=== PATIENT | male | born 1970 | race Caucasian/White ===

== ENCOUNTER 2016-09-18 10:32 | Outpatient (CLI) | payer OTHER ==
[~2016-09-18 10:32] MED LIST: BEN50 PO; BENZ1TAB24 PO; CIPR500T4 PO; CLON0.1T79 PO; DEPER500 PO; HAL5 PO; IND20 PO; ISON100T8 PO; LEVO0.155 PO; LISI-420 PO; ORE25 PO; PIOG15TA2 PO; QUET400T PO
== END 2016-09-18 20:15 | disposition home or self-care (01) ==
LOC: MRD 10:32
DX: M25.551 Pain in right hip (principal); R10.9 Unspecified abdominal pain
CPT/HCPCS: 73502; 74000

== ENCOUNTER 2017-01-26 09:35 | Emergency (ER) | payer OTHER ==
[~2017-01-26] VITALS: Ht 167.6 cm; Wt 130.2 kg
[2017-01-26 09:39] VITALS: BP 144/84
--- NOTE | 2017-01-26 09:53 | NUR ---
Patient ambulated to bed 05.
--- NOTE | 2017-01-26 10:00 | NUR ---
PATIENT PRESENTS TO ED WITH INTERMITTENT FLANK PAIN 5/10 BUT DENIES PAIN AT THIS TIME. DENIES N/V, DENIES DYSURIA . PT STATES . DENIES N/V/D; SKIN IS PINK/WARM/DRY; AAOX4 WITH EVEN AND STEADY GAIT; LUNGS CLEAR BL; HR EVEN AND REGULAR; PT DENIES ANY FEVER, CP, SOB, OR COUGH AT THIS TIME; PATIENT STATES PAIN OF 0/10 AT THIS TIME; VSS; PATIENT POSITIONED FOR COMFORT; HOB ELEVATED; BEDRAILS UP X2; BED DOWN. ER MD MADE AWARE OF PT STATUS.
--- NOTE | 2017-01-26 10:08 | NUR ---
Dr. Yan evaluating patient at bedside.
[2017-01-26 10:34] VITALS: BP 144/84
== END 2017-01-26 10:34 | disposition home or self-care (01) ==
LOC: MED 09:35
DX: R10.9 Unspecified abdominal pain (principal); G25.9 Extrapyramidal and movement disorder, unspecified; E11.9 Type 2 diabetes mellitus without complications; I10 Essential (primary) hypertension; Z87.891 Personal history of nicotine dependence
CPT/HCPCS: 81002; 82948; 99282; 99283

== ENCOUNTER 2017-02-09 10:54 | Emergency (ER) | payer OTHER ==
[~2017-02-09] VITALS: Ht 167.6 cm; Wt 129.3 kg
[2017-02-09 10:58] VITALS: BP 150/93
[2017-02-09] MEDS ORDERED: KETOROLAC 60 MG/2 ML VIAL IM ONE (12:20)
--- NOTE | 2017-02-09 12:27 | NUR ---
PATIENT PRESENTS TO ED WITH RIGHT HIP PAIN X 5 DAYS. PT STATED HE TOOK IBUPROFEN. DENIES N/V/D; SKIN IS PINK/WARM/DRY; AAOX4 WITH EVEN AND STEADY GAIT; LUNGS CLEAR BL; HR EVEN AND REGULAR; PT DENIES ANY FEVER, CP, SOB, OR COUGH AT THIS TIME; PATIENT STATES PAIN OF 0/10 AT THIS TIME; VSS; PATIENT POSITIONED FOR COMFORT; HOB ELEVATED; BEDRAILS UP X2; BED DOWN. ER MD MADE AWARE OF PT STATUS.
--- NOTE | 2017-02-09 12:29 | NUR ---
DR. HERNANDEZ PRESENT AT BEDSIDE.
[2017-02-09 12:45] LABS: BASOPHILS # (AUTO) 0.4 K/uL (0.00-0.22); BASOPHILS % (AUTO) 3.3 % (0.0-2.0); EOSINOPHILS # (AUTO) 0.1 K/uL (0-0.4); EOSINOPHILS % (AUTO) 0.9 % (0.0-4.0); HEMATOCRIT 46.4 % (36-52); LYMPHOCYTES # (AUTO) 1.8 K/uL (2.0-11.5); LYMPHOCYTES % (AUTO) 16.8 % (20.5-51.1); MEAN CORPUSCULAR HEMOGLOBIN 29 pg (27-31); MEAN CORPUSCULAR HGB CONC 32 g/dL (33-37); MEAN CORPUSCULAR VOLUME 90 fL (80-94); MONOCYTES # (AUTO) 0.5 K/uL (0.8-1.0); MONOCYTES % (AUTO) 4.5 % (1.7-9.3); NEUTROPHILS # (AUTO) 7.9 K/uL (1.8-7.7); NEUTROPHILS % (AUTO) 74.5 % (42.2-75.2); PLATELET COUNT (AUTO) 127 K/uL (140-450); RED BLOOD CELL COUNT(AUTO) 5.16 MIL/uL (4.20-6.10); RED CELL DISTRIBUTION WIDTH 15.1 % (11.6-13.7); WHITE BLOOD COUNT (AUTO) 10.7 K/uL (4.8-10.8)
[2017-02-09 13:19] LABS: APPEARANCE,URINE CLEAR (CLEAR); BILIRUBIN,URINE NEGATIVE (NEGATIVE); BLOOD, URINE NEGATIVE (NEGATIVE); COLOR,URINE YELLOW (YELLOW); LEUKOCYTE ESTERASE ,URINE NEGATIVE (NEGATIVE); NITRITE, URINE NEGATIVE (NEGATIVE); PROTEIN,URINE 1+ (NEGATIVE); UGLUCOSE NEGATIVE (NEGATIVE); UROBILINOGEN,URINE 0.2 EU/dL (0.2 - 1)
[2017-02-09 13:24] LABS: BACTERIA,URINE 0-2 (RARE) /HPF (None Seen); RBC,URINE 0-5 (RARE) /HPF (0-5); SQUAMOUS EPITHELIAL CELL,UR 0-3 (FEW) /LPF (0-3 (FEW)); WBC,URINE 0-5 (RARE) /HPF (0-5)
[2017-02-09 13:27] LABS: ANION GAP 12.8 (8-16); CALCIUM 9.3 mg/dL (8.5-10.1); CARBON DIOXIDE 27.2 mmol/L (21-32); CREATININE 0.7 mg/dL (0.7-1.3)
[2017-02-09 13:33] LABS: ALBUMIN 3.8 g/dL (3.4-5.0); TOTAL BILIRUBIN 0.5 mg/dL (0.0-1.0)
--- NOTE | 2017-02-09 13:34 | NUR ---
PT TO RADIOLOGY VIA WHEELCHAIR WITH TECH PRESENT.
--- NOTE | 2017-02-09 13:52 | NUR ---
PT BACK FROM CT AND IN BED
--- NOTE | 2017-02-09 14:54 | NUR ---
CALLED PT'S FATHER, INFORMED HE IS ON HIS WAY TO PICK HIM UP. PT IS WAITING IN THE LOBBY AT THIS TIME.
[2017-02-09 14:55] VITALS: BP 142/101
== END 2017-02-09 14:53 | disposition home or self-care (01) ==
LOC: MED 10:54
DX: M54.9 Dorsalgia, unspecified (principal); E11.9 Type 2 diabetes mellitus without complications; I10 Essential (primary) hypertension; E78.00 Pure hypercholesterolemia, unspecified; Z79.899 Other long term (current) drug therapy
CPT/HCPCS: 36415; 72170; 73502; 80053; 81001; 85025; 96372; 99285; J1885

== ENCOUNTER 2017-08-20 12:00 | Emergency (ER) | payer OTHER ==
[~2017-08-20] VITALS: Ht 165.1 cm; Wt 123.9 kg
[~2017-08-20 12:00] MED LIST changes: -BENZ1TAB24 PO; +BENZ1TAB42 PO; -CIPR500T4 PO; +CLON-527 TD; -CLON0.1T79 PO; -DEPER500 PO; +DIVA250E1 PO; -ISON100T8 PO; -PIOG15TA2 PO; +PIOG15TA24 PO
[2017-08-20 12:55] VITALS: BP 127/104
--- NOTE | 2017-08-20 12:58 | NUR ---
PT AMBULATES BACK TO THE LOBBY
--- NOTE | 2017-08-20 14:20 | NUR ---
PT AMBULATED TO [facility]
--- NOTE | 2017-08-20 14:48 | NUR ---
PT CONTINUES TO VERBALIZE HE HAS A RASH, "WHAT TIMEIS THE DOCTOR COMING?" I WANT TO LEAVE, PT EXPLAINED THE BUSYNESS OF ER AND PRIORTY ORDER. PT CONTINUES TO TALK OVER ME WITHOUT VERBALIZING UNDERSTANDING. REPORTS HIS DAD IS OUT IN THE WAITING AREA. DR HENRANDEZ INFORMED OF SITUATION. PT HERE FOR RASH TO [place] LOWER EXTREMITIES, DENIES URTICARIA. NO OPEN WOUNDS SEEN
--- NOTE | 2017-08-20 15:55 | NUR ---
LATE ENTRY PT AWAKES FROM SLEEPING, UPSET THAT HE HASN'T BEEN SEEN. STARTS TO YELL OFFENSIVE LANGUAGE AND THREATENS DOCTOR AND STAFF. SECURITY WAS IMMEDIATELY CALLED. PT WALKS OUT OF ER, CONTINUOUSLY THRAETENING STAFF. LIMITS SET, ATTEMPTED TO DE ESCALATE SITUATION, BUT PT WALKED OUT TO PARKING LOT BEING VERBALLY ABUSIVE. CN INFORMED.
--- NOTE | 2017-08-20 16:12 | NUR ---
PATIENT LEFT WITHOUT BEING SEEN BY . NO FURTHER CARE PROVIDED FOR PATIENT.
== END 2017-08-20 16:30 | disposition left against medical advice (07) ==
LOC: MED 12:00
DX: R21 Rash and other nonspecific skin eruption (principal); Z53.21 Procedure and treatment not carried out due to patient leaving prior to being seen by health care provider